=== PATIENT | female | born 1985 | race American Indian/Alaskan Native ===

== ENCOUNTER 2017-01-07 14:25 | Emergency (ER) | payer SELFPAY ==
[2017-01-07 15:32] LABS: Basophils % (Auto) 0.6 % (0.0-1.8); Eosinophils % (Auto) 0.3 % (0.0-4.3); Hematocrit 40.4 % (30.3-42.9); Hemoglobin 13.5 gm/dl (10.1-14.3); Mean Corpuscular HGB Conc 33 % (30-34); Mean Corpuscular Hemoglobin 28 pg (28-32); Mean Corpuscular Volume 83 fl (79-97); Platelet Count 310 K/mm3 (140-440); Red Blood Count 4.88 M/mm3 (3.65-5.03); White Blood Count 10.2 K/mm3 (4.5-11.0)
[2017-01-07 15:35] LABS: Alanine Aminotransferase 18 units/L (7-56); Albumin 4.4 g/dL (3.9-5); Albumin/Globulin Ratio 1.8 %; Alkaline Phosphatase 77 units/L (35-129); Anion Gap 16 mmol/L; BUN/Creatinine Ratio 15.71; Bilirubin,Total 0.4 mg/dL (0.1-1.2); Blood Urea Nitrogen 11 mg/dL (7-17); Calcium 8.9 mg/dL (8.4-10.2); Carbon Dioxide 24 mmol/L (22-30); Chloride 102.8 mmol/L (98-107); Glucose 96 mg/dL (65-100); Lipase 37 units/L (13-60); Potassium 3.9 mmol/L (3.6-5.0); Sodium 139 mmol/L (137-145); Total Protein 6.9 g/dL (6.3-8.2)
[2017-01-07 16:23] LABS: Bilirubin,Urine NEG (Negative); Blood,Urine NEG (Negative); Ketones,Urine NEG (Negative); Leukocyte Esterase,Urine NEG (Negative); Mucus,Urine FEW /HPF; Nitrite,Urine NEG (Negative); Protein,Urine <15 mg/dL mg/dL (Negative); Urobilinogen,Urine < 2.0 mg/dL (<2.0); WBC,Urine < 1.0 /HPF (0.0-6.0)
[2017-01-07 18:58] VITALS: BP 131/75
[2017-01-07] MEDS ORDERED: TORADOL IM ONE (19:35)
--- NOTE | 2017-01-07 20:30 | Emergency Department Report ---
ED Abdominal Pain HPI - General Chief Complaint: Abdominal Pain Stated Complaint: ABD PAIN AND HEADACHE Time Seen by Provider: 01/07/17 17:32 Source: patient Mode of arrival: Ambulatory Limitations: No Limitations - History of Present Illness Initial Comments: 31-year-old female with a past medical history hypertension presents to the hospital complaining of left lower quadrant pain and headache. Symptoms going on for the past 2-3 days. Left lower quadrant. Sharp and intermittently without aggravating alleviating factors. Pain rated 7/10 in intensity. She denies associated symptoms including nausea, vomiting, diarrhea, melena, hematochezia, vaginal discharge, vaginal bleeding, dysuria, hematuria, or fever. He presents with elevated blood pressure initially and has been noncompliant with her hydrochlorothiazide 1 month. Refill requested. No complaints of blurred vision, focal weakness, focal numbness, or neck pain. PMD : [facility] Severity scale (0 -10): 3 - Related Data Previous Rx's Medication Instructions Recorded Last Taken Type Hydrochlorothiazide [HCTZ] 25 mg PO QDAY #30 tablet 01/07/17 Unknown Rx Ibuprofen [Motrin] 800 mg PO Q8HR PRN #30 tablet 01/07/17 Unknown Rx traMADol [Ultram 50 MG tab] 50 mg PO Q6HR PRN #20 tablet 01/07/17 Unknown Rx Allergies Allergy/AdvReac Type Severity Reaction Status Date / Time No Known Allergies Allergy Unverified 01/07/17 14:54 ED Review of Systems ROS: Stated complaint: ABD PAIN AND HEADACHE Other details as noted in HPI Comment: All other systems reviewed and negative Other: Constitutional: No fevers chills Eyes: No eye pain visual changes ENT: No ear pain or throat pain Neck: Denies pain Respiratory: Denies cough wheezing shortness of breath Cardiovascular: Denies chest pain, palpitations, syncope GI: Denies a nausea, vomiting, diarrhea : Denies dysuria Musculoskeletal: Denies back pain, joint swelling Skin: Denies rash, lesions, erythema Neurologic: As per HPI Psychiatric: Denies suicidal ideation, hallucinations ED Past Medical Hx - Past Medical History Previous Medical History?: Yes Hx Hypertension: Yes Additional medical history: Flank pain - Surgical History Past Surgical History?: No - Social History Smoking Status: Never Smoker Substance Use Type: Alcohol, Prescribed - Medications Home Medications: Home Medications Medication Instructions Recorded Confirmed Last Taken Type Hydrochlorothiazide [HCTZ] 25 mg PO QDAY #30 tablet 01/07/17 Unknown Rx Ibuprofen [Motrin] 800 mg PO Q8HR PRN #30 tablet 01/07/17 Unknown Rx traMADol [Ultram 50 MG tab] 50 mg PO Q6HR PRN #20 tablet 01/07/17 Unknown Rx ED Physical Exam - General Limitations: No Limitations - Other Other exam information: General: No limitations, patient is alert in no acute distress Head exam: Atraumatic, normocephalic Eyes exam: Normal appearance ENT: Moist mucous membrane, normal oropharynx Neck exam: Normal inspection, full range of motion, no meningismus nontender Respiratory exam: Clear to auscultation bilateral, no wheezes, rales, crackles Cardiovascular: Normal rate and rhythm, normal heart sounds Abdomen: Soft, nondistended, and nontender, with normal bowel sounds, no rebound, or guarding : declined Extremity: Full range of motion normal inspection no deformity Back: Normal Inspection, full range of motion, no tenderness Neurologic: Alert, oriented x3, cranial nerves intact, no motor or sensory deficit Psychiatric: normal affect, normal mood Skin: Warm, dry, intact ED Course Vital Signs 01/07/17 01/07/17 01/07/17 14:55 17:51 17:52 Temperature 98.6 F Pulse Rate 88 Respiratory 20 Rate Blood Pressure 176/109 O2 Sat by Pulse 100 100 100 Oximetry 01/07/17 01/07/17 01/07/17 17:53 17:58 18:00 Temperature Pulse Rate 88 87 Respiratory 12 12 20 Rate Blood Pressure 150/80 131/75 O2 Sat by Pulse 100 100 99 Oximetry 01/07/17 01/07/17 01/07/17 18:15 18:31 18:45 Temperature Pulse Rate 83 84 86 Respiratory 22 27 H 24 Rate Blood Pressure 131/75 131/75 131/75 O2 Sat by Pulse 98 100 100 Oximetry 01/07/17 19:57 Temperature Pulse Rate Respiratory 18 Rate Blood Pressure O2 Sat by Pulse Oximetry - Reevaluation(s) Reevaluation #1: 01/07/17 Patient received Toradol for pain in the ED ED Medical Decision Making - Lab Data Result diagrams: 01/07/17 15:07 01/07/17 15:07 Lab Results 01/07/17 01/07/17 01/07/17 Range/Units 15:07 15:07 15:55 WBC 10.2 (4.5-11.0) K/mm3 RBC 4.88 (3.65-5.03) M/mm3 Hgb 13.5 (10.1-14.3) gm/dl Hct 40.4 (30.3-42.9) % MCV 83 (79-97) fl MCH 28 (28-32) pg MCHC 33 (30-34) % RDW 14.0 (13.2-15.2) % Plt Count 310 (140-440) K/mm3 Lymph % (Auto) 31.4 (13.4-35.0) % Owen % (Auto) 6.9 (0.0-7.3) % Eos % (Auto) 0.3 (0.0-4.3) % Baso % (Auto) 0.6 (0.0-1.8) % Lymph # 3.2 (1.2-5.4) K/mm3 Owen # 0.7 (0.0-0.8) K/mm3 Eos # 0.0 (0.0-0.4) K/mm3 Baso # 0.1 (0.0-0.1) K/mm3 Seg Neutrophils % 60.8 (40.0-70.0) % Seg Neutrophils # 6.2 (1.8-7.7) K/mm3 Sodium 139 (137-145) mmol/L Potassium 3.9 (3.6-5.0) mmol/L Chloride 102.8 (98-107) mmol/L Carbon Dioxide 24 (22-30) mmol/L Anion Gap 16 mmol/L BUN 11 (7-17) mg/dL Creatinine 0.7 (0.7-1.2) mg/dL Estimated GFR > 60 ml/min BUN/Creatinine Ratio 15.71 % Glucose 96 (65-100) mg/dL Calcium 8.9 (8.4-10.2) mg/dL Total Bilirubin 0.4 (0.1-1.2) mg/dL AST 15 (5-40) units/L ALT 18 (7-56) units/L Alkaline Phosphatase 77 (35-129) units/L Total Protein 6.9 (6.3-8.2) g/dL Albumin 4.4 (3.9-5) g/dL Albumin/Globulin Ratio 1.8 % Lipase 37 (13-60) units/L Urine Color Yellow (Yellow) Urine Turbidity Clear (Clear) Urine pH 5.0 (5.0-7.0) Ur Specific Doyle 1.021 (1.003-1.030) Urine Protein <15 mg/dl (Negative) mg/dL Urine Glucose (UA) Neg (Negative) mg/dL Urine Ketones Neg (Negative) mg/dL Urine Blood Neg (Negative) Urine Nitrite Neg (Negative) Urine Bilirubin Neg (Negative) Urine Urobilinogen < 2.0 (<2.0) mg/dL Ur Leukocyte Esterase Neg (Negative) Urine WBC (Auto) < 1.0 (0.0-6.0) /HPF Urine RBC (Auto) 1.0 (0.0-6.0) /HPF U Epithel Cells (Auto) < 1.0 (0-13.0) /HPF Urine Mucus Few /HPF - Medical Decision Making Patient has not had sexual intercourse in 6 months and declines offer for pelvic exam. Patient does not have any associated symptoms and has intermittent left-sided sharp pain. Cause can also be due to ovarian cyst. Patient can receive further outpatient workup and evaluation since lab work is normal, no pain clinically on exam, and patient is nontoxic appearing. She has a scheduled appointment with a primary care doctor in February. [employer] referral be provided as well since patient is interested in receiving a Pap smear and left lower quadrant pain can also be due to possible ovarian cyst which can be evaluated as outpatient. Patient's blood pressure spontaneously improved without treatment in the ED and patient also states her headache has improved prior to treatment. Patient did receive Toradol IM for residual intermittent abdominal pain and headache. - Differential Diagnosis diverticulitis, ovarian cyst, PID, vaginitis, UTI, Critical Care Time: No Critical care attestation.: If time is entered above; I have spent that time in minutes in the direct care of this critically ill patient, excluding procedure time. ED Disposition Clinical Impression: LLQ abdominal pain, HTN (hypertension), Headache Disposition: DISCHARGED TO HOME OR SELFCARE Is pt being admited?: No Does the pt Need Aspirin: No Condition: Stable Instructions: Acute Headache (ED), Abdominal Pain (ED), Hypertension (ED) Additional Instructions: Take the medication as prescribed. Follow up with your primary care doctor in the [employer] doctor provided. Return if symptoms worsen. Prescriptions: Hydrochlorothiazide [HCTZ] 25 mg PO QDAY #30 tablet Ibuprofen [Motrin] 800 mg PO Q8HR PRN #30 tablet PRN Reason: Pain traMADol [Ultram 50 MG tab] 50 mg PO Q6HR PRN #20 tablet PRN Reason: Pain Referrals: PRINCE HOOKER MD [Staff Physician] - 3-5 Days [facility] [Provider Group] - 3-5 Days [facility] [Provider Group] - 3-5 Days Time of Disposition: 20:32
== END 2017-01-07 20:48 | disposition home or self-care (01) ==
LOC: ED 14:25
DX: I10 Essential (primary) hypertension (principal); R10.32 Left lower quadrant pain; R51 Headache
CPT/HCPCS: 36415; 80053; 81001; 83690; 85025; 96372; 99283; J1885